=== PATIENT | male | born 1950 | race Caucasian/White ===

== ENCOUNTER 2023-08-17 11:26 | Outpatient (REF) | payer BC, SELFPAY ==
--- NOTE | ~2023-08-17 | XR_ITS ---
EXAMINATION: XR SHOULDER, RIGHT CLINICAL INFORMATION: Pain. COMPARISON: None available. TECHNIQUE: AP neutral and scapular Y views of the right shoulder are submitted. FINDINGS: Bony alignment and mineralization are normal. There is marked narrowing of the glenohumeral joint, with exuberant peripheral osteophyte formation. The acromioclavicular and coracoclavicular intervals are normal. There is a tiny distal acromial undersurface osteophyte, and there is cortical irregularity of the greater tuberosity of the proximal right humerus. No fracture or dislocation is seen. There is no soft tissue calcification or foreign body. No right pneumothorax is seen. There has been a prior cardiac valvuloplasty. XR/XR shoulder LT min 2V IMPRESSION: 1. There is marked osteoarthritic change of the right glenohumeral joint. 2. Findings suggest right rotator cuff injury. No myrna calcific tendinitis is seen. 3. There is no fracture or dislocation EXAMINATION: XR SHOULDER, LEFT CLINICAL INFORMATION: Pain. COMPARISON: None available. TECHNIQUE: AP neutral and scapular Y views of the left shoulder are submitted. FINDINGS: Bony alignment and mineralization are normal. There is marked narrowing of the glenohumeral joint, with peripheral osteophyte formation. The acromioclavicular and coracoclavicular intervals are normal. No fracture or dislocation is seen. No focal soft tissue calcification or foreign body is seen. There is no left pneumothorax. There has been a prior cardiac valvuloplasty. IMPRESSION: 1. There is marked osteoarthritic change of the left glenohumeral joint. 2. No fracture or dislocation is seen.
--- NOTE | ~2023-08-17 | XR_ITS ---
EXAMINATION: XR SHOULDER, RIGHT CLINICAL INFORMATION: Pain. COMPARISON: None available. TECHNIQUE: AP neutral and scapular Y views of the right shoulder are submitted. FINDINGS: Bony alignment and mineralization are normal. There is marked narrowing of the glenohumeral joint, with exuberant peripheral osteophyte formation. The acromioclavicular and coracoclavicular intervals are normal. There is a tiny distal acromial undersurface osteophyte, and there is cortical irregularity of the greater tuberosity of the proximal right humerus. No fracture or dislocation is seen. There is no soft tissue calcification or foreign body. No right pneumothorax is seen. There has been a prior cardiac valvuloplasty. XR/XR shoulder RT min 2V IMPRESSION: 1. There is marked osteoarthritic change of the right glenohumeral joint. 2. Findings suggest right rotator cuff injury. No myrna calcific tendinitis is seen. 3. There is no fracture or dislocation EXAMINATION: XR SHOULDER, LEFT CLINICAL INFORMATION: Pain. COMPARISON: None available. TECHNIQUE: AP neutral and scapular Y views of the left shoulder are submitted. FINDINGS: Bony alignment and mineralization are normal. There is marked narrowing of the glenohumeral joint, with peripheral osteophyte formation. The acromioclavicular and coracoclavicular intervals are normal. No fracture or dislocation is seen. No focal soft tissue calcification or foreign body is seen. There is no left pneumothorax. There has been a prior cardiac valvuloplasty. IMPRESSION: 1. There is marked osteoarthritic change of the left glenohumeral joint. 2. No fracture or dislocation is seen.
== END 2023-08-17 11:27 | disposition home or self-care (01) ==
LOC: HO.HOSX 11:26
PROVIDERS: Visit Provider Orthopaedic Surgery
DX: M25.512 Pain in left shoulder (principal); M25.511 Pain in right shoulder
CPT/HCPCS: 73030

== ENCOUNTER 2023-08-17 13:42 | Outpatient (AMB) | payer BC, SELFPAY ==
--- NOTE | 2023-08-17 13:43 | MHC.OFFVIS ---
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 The patient states that his symptoms gotten worse during COVID when he stopped going to the gym. He noticed that he lost range of motion in both of his shoulders at that time. Has been going to physical therapy which has helped with his discomfort and range of motion somewhat. He has taken Tylenol which gives him mild relief. Allergies codeine Adverse Reaction (Mild, Verified 08/17/23 14:08) Headache Medication List - Last Reconciled 08/18/23 by Gilberto Landry MD atorvastatin 10 mg PO DAILY hydrocortisone 2.5% appl topical lisinopril 10 mg PO DAILY metoprolol succinate ER 50 mg PO DAILY PFSH Surgical History (Updated 08/17/23 @ 14:09 by Adamaris Harley CMA) Hx of hernia repair History of open heart surgery Physical Exam Vital Signs: BMI result Body Mass Index 25.5 Const Other: Well-nourished well-developed very friendly male awake alert and oriented x3 in no acute distress Extrem Other: Bilateral upper extremity examination shows good capillary refill, no skin lesions noted, normal sensation light touch Bilateral shoulder examination shows forward flexion to 100 degrees, external rotation at 30 degrees, internal rotation to 30 degrees, 5/5 strength with supraspinatus testing, positive impingement signs, tenderness over his acromioclavicular joint, no instability Results Reviewed Results Reviewed: X-rays of the patient's bilateral shoulder show severe acromioclavicular joint narrowing, type 2 acromion, a moderate to severe glenohumeral joint degenerative changes, no acute bony abnormalities Assessment & Plan Assessment & Plan (1) Arthritis of both shoulder regions: Code(s): M19.011 - Primary osteoarthritis, right shoulder; M19.012 - Primary osteoarthritis, left shoulder Plan Mr. Gutierrez presents with bilateral shoulder pains, left greater than right, due to impingement syndrome, acromioclavicular joint arthritis, glenohumeral joint arthritis and adhesive capsulitis. I had a lengthy discussion with the patient regarding the treatment options. At this point the patient's symptoms are tolerable to him. Will continue with his home stretching program. The do's and don'ts of lifting were discussed at length with the patient. The patient will follow up with me on an as-needed basis should his symptoms worsen in any way. Feel free to call me at any time should questions regarding his orthopedic management arise. Thank you very much for asking me to see this very friendly gentleman. I spent 22 minutes in reviewing the patient's records and imaging studies, seeing the patient and documenting in the medical record. Orders: Orders XR shoulder LT min 2V 08/17/23 M25.512 - Pain in left shoulder XR shoulder RT min 2V 08/17/23 M25.511 - Pain in right shoulder PT Evaluation and Treatment 08/17/23 M19.011 - Primary osteoarthritis, right shoulder, M19.012 - Primary osteoarthritis, left shoulder Coding Level of Care Code New Pt Level 2 (48577) Diagnoses Arthritis of both shoulder regions M19.011; M19.012
[2023-08-17 14:03] VITALS: BMI 25.5
== END 2023-08-17 14:42 | disposition home or self-care (01) ==
PROVIDERS: PCP Hospitalist; Visit Provider Orthopaedic Surgery
DX: M19.011 Primary osteoarthritis, right shoulder (principal); M19.012 Primary osteoarthritis, left shoulder
CPT/HCPCS: 99202

== ENCOUNTER 2023-09-21 08:39 | Outpatient (AMB) | payer BC, SELFPAY ==
[2023-09-21 08:53] VITALS: BMI 25.5
--- NOTE | 2023-09-21 08:53 | MHC.OFFVIS ---
Vital Signs 09/21/23 08:53 Height 5 ft 3 in Weight 144 lb BMI 25.5 Intake Visit Reasons: Pre-Lt Shld 10/01/23 Intake Note: Mansoor Sifuentes is a 73 year old Right hand dominate male who presents with bilateral shoulder pains and stiffness, left greater than right. The patient states that his symptoms gotten worse during COVID when he stopped going to the gym. He noticed that he lost range of motion in both of his shoulders at that time. Has been going to physical therapy which has helped with his discomfort and range of motion somewhat. He has taken Tylenol which gives him mild relief. Allergies codeine Adverse Reaction (Mild, Verified 09/21/23 09:06) Headache Medication List - Last Reconciled 09/21/23 by Gilberto Landry MD atorvastatin 10 mg PO DAILY hydrocortisone 2.5% appl topical lisinopril 10 mg PO DAILY metoprolol succinate ER 50 mg PO DAILY PFSH Surgical History Hx of hernia repair History of open heart surgery Social History Patient Tobacco Use Status: Never used Tobacco Current occupational status: retired Current occupation: Right hand dominant Physical Exam Vital Signs: BMI result Body Mass Index 25.5 Const Other: Well-nourished well-developed very friendly male awake alert and oriented x3 in no acute distress Extrem Other: Bilateral upper extremity examination shows good capillary refill, no skin lesions noted, normal sensation light touch Left shoulder examination shows decreased range of motion when compared to his right shoulder, mild crepitus with range of motion, 5/5 strength with supraspinatus testing, positive impingement signs, tenderness over his acromioclavicular joint, no instability Results Reviewed Results Reviewed: MRI of the patient's left shoulder shows severe acromioclavicular joint narrowing, moderate glenohumeral joint degenerative changes, a type 2 acromion, no acute bony abnormalities Assessment & Plan Assessment & Plan (1) Left shoulder pain: Code(s): M25.512 - Pain in left shoulder Category: Medical Plan Mr. Gutierrez presents with left shoulder pain and stiffness due to impingement syndrome, acromioclavicular joint arthritis, glenohumeral joint arthritis and adhesive capsulitis. I had a lengthy discussion with the patient regarding the treatment options. At this point he has failed continued non operative treatments. The risks and benefits of left shoulder surgery were discussed at length with the patient. The patient wishes to proceed with surgery. Surgery will most likely involve left shoulder diagnostic arthroscopy with distal clavicle excision, acromioplasty, capsular release and manipulation under anesthesia. The patient was given a prescription for oxycodone at his preoperative appointment. He will follow-up as instructed. Feel free to call me at any time should questions regarding his orthopedic management arise. I spent 20 minutes in reviewing the patient's records and imaging studies, seeing the patient and documenting in the medical record. Medications: New oxycodone Partial Fill upon patient request. Take 1-2 tabs every 4 hours as needed for pain following your left shoulder surgery 10 mg (2 x 5 mg) PO Q4H PRN 40 tabs 0RF pain 1 week Coding Level of Care Code Est Pt Level 4 (65113) Diagnoses Left shoulder pain M25.512
== END 2023-09-21 09:33 | disposition home or self-care (01) ==
PROVIDERS: PCP Hospitalist; Visit Provider Orthopaedic Surgery
DX: M25.512 Pain in left shoulder (principal)
CPT/HCPCS: 99214

== ENCOUNTER → 2023-09-21 08:39 | Outpatient (BNVA) | payer BC, SELFPAY | PROVIDERS: PCP Hospitalist; Visit Provider Orthopaedic Surgery ==

== ENCOUNTER → 2023-09-23 15:00 | Outpatient (BNV) | payer BC, SELFPAY | PROVIDERS: PCP Hospitalist; Visit Provider Internal Medicine Cardiovascular Disease | DX: R94.31 Abnormal electrocardiogram [ECG] [EKG] (principal) | CPT/HCPCS: 93010 ==

== ENCOUNTER 2023-10-01 10:44 | Day surgery (SDC) | payer BC, SELFPAY ==
--- NOTE | 2023-09-23 | ECG_ITS ---
Test Reason : preop Blood Pressure : / mmHG Vent. Rate : 064 BPM Atrial Rate : 064 BPM P-R Int : 152 ms QRS Dur : 114 ms QT Int : 406 ms P-R-T Axes : 061 -36 -08 degrees QTc Int : 418 ms Normal sinus rhythm Left axis deviation Minimal voltage criteria for LVH, may be normal variant ( [place] product ) Abnormal ECG No previous ECGs available Referred By: Kassandra Danielson Electronically Signed By:Eric Yoder
[2023-09-23 13:57] VITALS: BP 141/82; PULSE 72; RESP 16; O2SAT 96; BMI 25.3
--- NOTE | 2023-09-23 14:29 | HO.ANESPROP2 ---
Documented by User: Kassandra Danielson NP 09/29/23 13:46 HPI - Anesthesia Eval Consult details Narrative: 73yo M for Shoulder Arthroscopy,distal clavicle excision,acromioplasty,with manipulation Follows [facility] s/p AVR 12/2021. Stable with yearly f/u 2022. Very active with walking, kayaking, etc (12/2021 pt presented with flash pulmo edema with type 2 NSTEMI, critical aortic stenosis. s/p AVR) Annual exam by PCP 07/2023, stable PMFSH Active Problems Active Problems: All Active Problems Arthritis of both shoulder regions (Acute) Right shoulder pain (Acute) Left shoulder pain (Acute) Past Medical History Medical History Wears hearing aid in both ears [place] [employer] [employer] (hard of hearing) Arthritis Hx of shortness of breath Seasonal allergies Cardiac murmur Elevated cholesterol Personal history of COVID-19 Aortic stenosis Bilateral carotid bruits Impaired fasting glucose History of prostate cancer HTN (hypertension) Family History Family history of problems with anesthesia: No Surgical History Surgical History History of open heart surgery (12/2021) Hx of basal cell carcinoma excision Hx of wisdom tooth extraction Hx of prostate biopsy Hx of bilateral inguinal hernia repair Hx of melanoma excision Hx of prostatectomy Hx of hernia repair History of Problems with Anesthesia: No Social History Social History Household Members: Spouse Housing: House Are you a primary manager urgent care to a significant other at home: No Do you presently have visiting nurse or other home services: No Patient Tobacco Use Status: Never used Tobacco Use of substances other than those prescribed or required for medical reasons: No Have you been hit, kicked, punched, or otherwise hurt by someone within the past year? If so, by whom?: No Are you DNR?: No Advance Directives: No Advance Directives Information Provided: Yes Advance Directives on File: No Recently lost weight without trying: No Nutrition Risks: No Nutritional Risk Poor oral hygiene: No Current occupational status: retired Current occupation: Right hand dominant Meds Allergies Allergy/AdvReac Type Severity Reaction Status Date / Time codeine AdvReac Mild Headache Verified 10/01/23 10:55 Home Medications ?Medication ?Instructions ?Recorded ?Confirmed ?Last Taken ?Type atorvastatin 10 mg tablet 10 mg PO DAILY@1700 08/17/23 09/22/23 Unknown History hydrocortisone 2.5 % topical cream 1 appl topical DAILY PRN Rash 08/17/23 09/23/23 Unknown History lisinopril 10 mg tablet 10 mg PO DAILY 08/17/23 10/01/23 09/30/23 History metoprolol succinate 50 mg 50 mg PO DAILY 08/17/23 10/01/23 10/01/23 History tablet,extended release 24 hr acai arambula extract 500 mg capsule 1,200 mg PO DAILY 09/22/23 09/22/23 Unknown History ascorbic acid (vitamin C) 500 mg 500 mg PO DAILY 09/22/23 09/23/23 Unknown History tablet (Vitamin C) aspirin 81 mg tablet,delayed 81 mg PO DAILY 09/22/23 10/01/23 09/30/23 History release cholecalciferol (vitamin D3) 25 25 mcg PO DAILY 09/22/23 09/22/23 Unknown History mcg (1,000 unit) tablet (Vitamin D3) coQ10 (ubiquinol) 200 mg capsule 300 mg PO DAILY 09/22/23 09/23/23 Unknown History flaxseed oil 1,000 mg capsule 1,400 mg PO DAILY 09/22/23 10/01/23 09/24/23 History fluticasone propionate 50 1 spray intranasal DAILY 09/22/23 09/22/23 Unknown History mcg/actuation nasal spray,suspension (Flonase Allergy Relief) magnesium 200 mg tablet 250 mg PO DAILY 09/22/23 09/23/23 Unknown History multivitamin 1 tab PO DAILY 09/22/23 09/22/23 Unknown History polyethylene glycol 3350 17 gram 17 g PO DAILY 09/22/23 09/22/23 Unknown History oral powder packet (Miralax) oxycodone 5 mg tablet 5 mg PO Q4H PRN pain 09/23/23 09/23/23 Unknown History Exam Height,Weight and Vital Signs: Height 5 ft 3.5 in Weight 65.771 kg Last Vital Signs Pulse 72 09/23/23 13:57 Resp 16 09/23/23 13:57 BP 141/82 H 09/23/23 13:57 Pulse Ox 96 05/09/24 13:57 O2 Del Method Room Air 09/23/23 13:57 Pertinent Lab Results Pertinent Lab Results: BMP, A1C 07/2023 from outside facility WNL Lab Results 09/23/23 Range/Units 15:08 WBC 9.2 (4.8-10.8) X10*3/uL RBC 4.82 (4.60-5.80) X10*6/uL Hgb 14.6 (14.0-18.0) g/dl Hct 43.4 (42.0-52.0) % MCV 90.0 (80.0-98.0) fL MCH 30.3 (27.0-33.0) pg MCHC 33.6 (31.0-36.0) g/dl RDW 12.4 (11.0-16.0) % Plt Count 204 (160-400) X10*3/uL MPV 10.7 (9.4-12.4) fL Absolute Nucleated RBC 0.000 (0.0-0.012) X10*3/uL Nucleated RBC % (auto) 0.0 (0.0-0.2) /100WBC Narrative Narrative: EKG 09/2023 Vent. Rate : 064 BPM Atrial Rate : 064 BPM P-R Int : 152 ms QRS Dur : 114 ms QT Int : 406 ms P-R-T Axes : 061 -36 -08 degrees QTc Int : 418 ms Normal sinus rhythm Left axis deviation Minimal voltage criteria for LVH, may be normal variant ( [place] product ) Abnormal ECG No previous ECGs available ( No Change from previous at outside facility) ECHO 12/2022 LVEF 60-65% Gr 1 DD Bioprosthesis in aortic position with nml function and trace regurg Asc thoracic aorta @ 4.0cm Airway Mallampati Class: III TM Dist: >3cm Neck ROM: Full Loose/Missing/Broken Teeth: Yes (Crowned molars) Heart: RRR +m Lungs: CTAB Assessment and Plan Assessment Anesthesia Assessment: Anesthesia Plan Discussed and PAT Visit Final Anesthetic Review Family History of Problems with Anesthesia: No History of Problems with Anesthesia: No Documented by User: Elen Salas MD 10/01/23 13:22 [facility] Past Medical History Medical History Wears hearing aid in both ears [place] [employer] [employer] (hard of hearing) Arthritis Hx of shortness of breath Seasonal allergies Cardiac murmur Elevated cholesterol Personal history of COVID-19 Aortic stenosis Bilateral carotid bruits Impaired fasting glucose History of prostate cancer HTN (hypertension) Surgical History Surgical History History of open heart surgery (12/2021) Hx of basal cell carcinoma excision Hx of wisdom tooth extraction Hx of prostate biopsy Hx of bilateral inguinal hernia repair Hx of melanoma excision Hx of prostatectomy Hx of hernia repair Social History Social History Household Members: Spouse Housing: House Are you a primary manager urgent care to a significant other at home: No Do you presently have visiting nurse or other home services: No Patient Tobacco Use Status: Never used Tobacco Use of substances other than those prescribed or required for medical reasons: No Have you been hit, kicked, punched, or otherwise hurt by someone within the past year? If so, by whom?: No Are you DNR?: No Advance Directives: No Advance Directives Information Provided: Yes Advance Directives on File: No Recently lost weight without trying: No Nutrition Risks: No Nutritional Risk Poor oral hygiene: No Current occupational status: retired Current occupation: Right hand dominant Meds Allergies Allergy/AdvReac Type Severity Reaction Status Date / Time codeine AdvReac Mild Headache Verified 10/01/23 10:55 Home Medications ?Medication ?Instructions ?Recorded ?Confirmed ?Last Taken ?Type atorvastatin 10 mg tablet 10 mg PO DAILY@1700 08/17/23 09/22/23 Unknown History hydrocortisone 2.5 % topical cream 1 appl topical DAILY PRN Rash 08/17/23 09/23/23 Unknown History lisinopril 10 mg tablet 10 mg PO DAILY 08/17/23 10/01/23 09/30/23 History metoprolol succinate 50 mg 50 mg PO DAILY 08/17/23 10/01/23 10/01/23 History tablet,extended release 24 hr acai arambula extract 500 mg capsule 1,200 mg PO DAILY 09/22/23 09/22/23 Unknown History ascorbic acid (vitamin C) 500 mg 500 mg PO DAILY 09/22/23 09/23/23 Unknown History tablet (Vitamin C) aspirin 81 mg tablet,delayed 81 mg PO DAILY 09/22/23 10/01/23 09/30/23 History release cholecalciferol (vitamin D3) 25 25 mcg PO DAILY 09/22/23 09/22/23 Unknown History mcg (1,000 unit) tablet (Vitamin D3) coQ10 (ubiquinol) 200 mg capsule 300 mg PO DAILY 09/22/23 09/23/23 Unknown History flaxseed oil 1,000 mg capsule 1,400 mg PO DAILY 09/22/23 10/01/23 09/24/23 History fluticasone propionate 50 1 spray intranasal DAILY 09/22/23 09/22/23 Unknown History mcg/actuation nasal spray,suspension (Flonase Allergy Relief) magnesium 200 mg tablet 250 mg PO DAILY 09/22/23 09/23/23 Unknown History multivitamin 1 tab PO DAILY 09/22/23 09/22/23 Unknown History polyethylene glycol 3350 17 gram 17 g PO DAILY 09/22/23 09/22/23 Unknown History oral powder packet (Miralax) oxycodone 5 mg tablet 5 mg PO Q4H PRN pain 09/23/23 09/23/23 Unknown History Exam Airway Mallampati Class: III (anterior larynx noted on laryngoscopy intraop ) Assessment and Plan Assessment Anesthesia Assessment: Chart Reviewed Final Anesthetic Review ASA Class: III Final Preanesthetic Review: No Changes in Pt Med Stat, Meds/Allgs Chart Reviewed, Consent Obtained/Reviewed and Anes Risks/Benef Reviewed Patient Risk: Intermediate Procedure Risk: Intermediate Anesthetic Plan Anesthetic Plan: GA and Regional Block Disposition: Standard PACU
[2023-09-23 15:31] LABS: Hematocrit 43.4 % (42.0-52.0); Hemoglobin 14.6 g/dl (14.0-18.0); Mean Corpuscular HGB Conc 33.6 g/dl (31.0-36.0); Mean Corpuscular Hemoglobin 30.3 pg (27.0-33.0); Mean Platelet Volume 10.7 fL (9.4-12.4); Platelet Count 204 X10*3/uL (160-400); Red Blood Count 4.82 X10*6/uL (4.60-5.80); Red Cell Distribution Width 12.4 % (11.0-16.0); White Blood Count 9.2 X10*3/uL (4.8-10.8)
[2023-10-01] VITALS (8 sets, daily range): BP systolic 175–190; BP diastolic 83–97; PULSE 61–75; RESP 12–16; TEMP 36.1–36.7; O2SAT 97–100; BMI 25.3
[2023-10-01] MEDS: Lactated Ringers 1,000 ML 100 ML IVCONT (11:21)
--- NOTE | 2023-10-01 14:29 | P.BOP_ITS ---
Brief Operative Note Date of Service: 10/01/23 Pre-op diagnosis: Left shoulder impingement syndrome, left shoulder arthritis, left shoulder adhesive capsulitis Post-op diagnosis: same Procedure: Left shoulder arthroscopic distal clavicle excision, left shoulder arthroscopic acromioplasty, left shoulder arthroscopic glenohumeral joint debridement, left shoulder arthroscopic anterior capsular release, left shoulder manipulation under anesthesia Implants: None Surgeon: Gilberto Landry MD Anesthesia: GETA and regional Was an Apartment Leasing Manager used for this Procedure?: No Estimated blood loss (mL): 10 Pathology: none sent Condition: stable Disposition: PACU
--- NOTE | 2023-10-01 14:30 | W.PM.OPN ---
Operative Note Operative Note Date of Service: 10/01/23 Narrative: After the patient was identified as Mansoor Gutierrez and his left shoulder was initialed by myself the patient was brought to the holding area where a left shoulder interscalene regional block was performed by the anesthesiologist in routine fashion. The patient was then brought to the operating room where general anesthesia was induced by the anesthesiologist in routine fashion. The patient was given 2 g of IV Ancef preoperatively for infection prophylaxis. Examination under anesthesia of the patient's left shoulder showed decreased range of motion when compared to the right shoulder. The patient's left shoulder had forward flexion to 90 degrees compared to 160 degrees, external rotation to 20 degrees compared to 40 degrees, and internal rotation to 30 degrees compared to 40 degrees. The patient was gently positioned in the beach chair position with all bony prominences well padded. The patient's left shoulder region and upper extremity were prepped and draped in sterile fashion. A formal time-out was completed. A #11 scalpel blade was used to make a posterior portal 2 cm inferior and 1 cm medial to the posterolateral corner of the acromion. Blunt trocar technique was used to enter the glenohumeral joint in routine fashion. An anterior portal was made just lateral to the coracoid process after proper positioning was confirmed using a spinal needle. Diagnostic arthroscopy showed diffuse grades 3 and 4 degenerative changes of the humeral head articular surface as well as diffuse grades 2 and 3 degenerative changes of the glenoid articular surface. The articular surfaces were made smooth using the arthroscopic shaver. There was no evidence of rotator cuff tearing. There was no evidence of injury to the biceps tendon or its insertion onto the glenoid. There was inflammation of the anterior joint capsule consistent with adhesive capsulitis. The ArthroCare Wand was then used to perform an anterior capsular release between the inferior border of the biceps tendon and the superior border of the subscapularis tendon. The arthroscope was then placed from the posterior portal into the subacromial space. A lateral portal was made 2 fingerbreadths lateral to the anterior lateral corner of the acromion. The ArthroCare Wand was used to ablate soft tissues along the undersurface of the acromion as well as to excise the coracoacromial ligament. There was a sharp spur along the undersurface of the acromion which was removed using the hooded bur. The arthroscope was then placed into the lateral portal and the acromioplasty was completed with the bur in the posterior portal using the posterior aspect of the acromion as a cutting block. The ArthroCare Wand was then brought in through the anterior portal and was used to ablate soft tissues along the acromioclavicular joint and distal clavicle. The posterior and superior ligamentous structures were left intact. A distal clavicle excision of 8 mm was performed using the hooded bur. Any remaining bursal tissue was removed using the arthroscopic shaver. The subacromial space was irrigated and then drained. All arthroscopic instruments were removed. A gentle manipulation under anesthesia was then performed. Full passive range of motion was easily attained. The 3 portals were closed with 3-0 nylon interrupted suture. The subacromial space was injected with Marcaine. Dry sterile dressing was placed over all incisions. The patient's left upper extremity was placed into a sling. The patient was awoken and extubated in the operating room. The patient was transferred to the recovery room in stable condition.
[2023-10-01] MEDS: cefTRIAXone sodium 1 GM in 0.9 % Sodium Chloride 50 ML IV (14:40)
== END 2023-10-01 15:56 ==
PROVIDERS: Nurse Practitioner; PCP Hospitalist; Visit Provider Orthopaedic Surgery
PROC: (CPT 29805; principal; 2023-10-01 13:20)
DX: M75.42 Impingement syndrome of left shoulder (principal); M75.02 Adhesive capsulitis of left shoulder; M19.012 Primary osteoarthritis, left shoulder; Z79.899 Other long term (current) drug therapy; Z88.5 Allergy status to narcotic agent; Z98.890 Other specified postprocedural states
CPT/HCPCS: 29824; 29825; 29822; 29826; 36415; 85027; 93005; J0131; J0171; J0665; J0690; J0696; J1100; J2250; J2405; J2704; J2795; J3010

== ENCOUNTER → 2023-10-01 10:44 | Outpatient (BNV) | payer BC, SELFPAY | PROVIDERS: PCP Hospitalist; Visit Provider Orthopaedic Surgery | DX: M75.02 Adhesive capsulitis of left shoulder (principal); M19.012 Primary osteoarthritis, left shoulder; M75.42 Impingement syndrome of left shoulder | CPT/HCPCS: 29824; 29826 ==

== ENCOUNTER 2023-10-14 13:15 | Outpatient (AMB) | payer BC, SELFPAY ==
--- NOTE | 2023-10-14 13:35 | MHC.OFFVIS ---
Vital Signs 10/14/23 13:39 Height 5 ft 3 in Weight 140 lb BMI 24.8 Intake Visit Reasons: PO-Lt Shld 10/01/23 Intake Note: Mansoor is a 73 year old male who presents for his post operative appointment s/p Left shoulder on 10/01/2023. The patient reports mild intermittent discomfort in his left shoulder. He denies any fevers or chills. He has been doing stretching exercises on his own. He has no longer taking narcotics for his discomfort. Allergies codeine Adverse Reaction (Mild, Verified 10/14/23 13:41) Headache Medication List - Last Reconciled 10/14/23 by Gilberto Landry MD acai arambula extract 1,200 mg PO DAILY ascorbic acid (vitamin C) (Vitamin C) 500 mg PO DAILY aspirin 81 mg PO DAILY atorvastatin 10 mg PO DAILY@1700 cholecalciferol (vitamin D3) (Vitamin D3) 25 mcg PO DAILY coQ10 (ubiquinol) 300 mg PO DAILY flaxseed oil 1,400 mg PO DAILY fluticasone propionate 50 mcg/actuation (Flonase Allergy Relief) 1 spray intranasal DAILY hydrocortisone 2.5% 1 appl topical DAILY PRN lisinopril 10 mg PO DAILY magnesium 250 mg PO DAILY metoprolol succinate ER 50 mg PO DAILY multivitamin 1 tab PO DAILY oxycodone 5 mg PO Q4H PRN polyethylene glycol 3350 (Miralax) 17 grams PO DAILY PFSH Medical History Wears hearing aid in both ears [place] (hard of hearing) Arthritis Hx of shortness of breath Seasonal allergies Cardiac murmur Elevated cholesterol Personal history of COVID-19 Aortic stenosis Bilateral carotid bruits Impaired fasting glucose History of prostate cancer HTN (hypertension) Surgical History History of open heart surgery (12/2021) Hx of basal cell carcinoma excision Hx of wisdom tooth extraction Hx of prostate biopsy Hx of bilateral inguinal hernia repair Hx of melanoma excision Hx of prostatectomy Hx of hernia repair Social History Household Members: Spouse Housing: House Are you a primary critical care cns to a significant other at home: No Do you presently have visiting nurse or other home services: No 75 years or older and lives alone: No Patient Tobacco Use Status: Never used Tobacco Current occupational status: retired Current occupation: Right hand dominant Physical Exam Vital Signs: BMI result Body Mass Index 24.8 Const Other: Well-nourished well-developed very friendly male awake alert and oriented x3 in no acute distress Extrem Other: Bilateral upper extremity examination shows good capillary refill, no skin lesions noted, normal sensation light touch Left shoulder examination shows that the surgical incisions are healing well, no erythema, improved range of motion when compared to preop, minimal discomfort with range of motion Assessment & Plan Assessment & Plan (1) Left shoulder pain: Code(s): M25.512 - Pain in left shoulder Category: Medical Plan Mr. Gutierrez is doing very well after undergoing left shoulder arthroscopic surgery on 10/01/2023. His sutures were removed and Steri-Strips placed over his incisions. He will continue with his home stretching program. The do's and don'ts of lifting were discussed at length with the patient. He will contact me prior to his follow-up appointment in 6 weeks should any questions or concerns arise. Feel free to call me at any time should questions regarding his orthopedic management arise. Coding Level of Care Code Global (82364) Diagnoses Left shoulder pain M25.512
[2023-10-14 13:39] VITALS: BMI 24.8
== END 2023-10-14 13:56 | disposition home or self-care (01) ==
PROVIDERS: PCP Hospitalist; Visit Provider Orthopaedic Surgery
DX: M25.512 Pain in left shoulder (principal)
CPT/HCPCS: 99024

== ENCOUNTER → 2023-10-14 13:15 | Outpatient (BNVA) | payer BC, SELFPAY | PROVIDERS: PCP Hospitalist; Visit Provider Orthopaedic Surgery ==

== ENCOUNTER 2023-11-24 11:27 | Outpatient (AMB) | payer BC, SELFPAY ==
--- NOTE | 2023-11-24 11:30 | MHC.OFFVIS ---
Intake Visit Reasons: PO-Lt Shld 10/01/23-6 week follow up Intake Note: Mansoor is a 73 year old male who presents to the office today for a 6 week P/O left shoulder 10/01/23 follow up. Pt states he is feeling well. The patient continues with his home stretching program. He does use a vivek at home. He denies any fevers or chills. Allergies codeine Adverse Reaction (Mild, Verified 11/24/23 11:30) Headache Medication List - Last Reconciled 11/24/23 by Gilberto Landry MD acai arambula extract 1,200 mg PO DAILY ascorbic acid (vitamin C) (Vitamin C) 500 mg PO DAILY aspirin 81 mg PO DAILY atorvastatin 10 mg PO DAILY@1700 cholecalciferol (vitamin D3) (Vitamin D3) 25 mcg PO DAILY coQ10 (ubiquinol) 300 mg PO DAILY flaxseed oil 1,400 mg PO DAILY fluticasone propionate 50 mcg/actuation (Flonase Allergy Relief) 1 spray intranasal DAILY hydrocortisone 2.5% 1 appl topical DAILY PRN lisinopril 10 mg PO DAILY magnesium 250 mg PO DAILY metoprolol succinate ER 50 mg PO DAILY multivitamin 1 tab PO DAILY polyethylene glycol 3350 (Miralax) 17 grams PO DAILY PFSH Medical History Wears hearing aid in both ears [place] (hard of hearing) Arthritis Hx of shortness of breath Seasonal allergies Cardiac murmur Elevated cholesterol Personal history of COVID-19 Aortic stenosis Bilateral carotid bruits Impaired fasting glucose History of prostate cancer HTN (hypertension) Surgical History History of open heart surgery (12/2021) Hx of basal cell carcinoma excision Hx of wisdom tooth extraction Hx of prostate biopsy Hx of bilateral inguinal hernia repair Hx of melanoma excision Hx of prostatectomy Hx of hernia repair Social History Household Members: Spouse Housing: House Are you a primary ocular care technician to a significant other at home: No Do you presently have visiting nurse or other home services: No 75 years or older and lives alone: No Patient Tobacco Use Status: Never used Tobacco Current occupational status: retired Current occupation: Right hand dominant Physical Exam Extrem Other: Left upper extremity examination shows that the surgical incisions are well healed, no erythema, improved range of motion when compared to his preoperative exam, minimal discomfort with range of motion, 5/5 strength with supraspinatus testing Assessment & Plan Assessment & Plan (1) Left shoulder pain: Code(s): M25.512 - Pain in left shoulder Category: Medical Plan Mr. Gutierrez continues to do well after undergoing left shoulder arthroscopic surgery on 10/01/2023. I did give him a prescription to go to formal physical therapy. He will also continue with his home stretching program. The do's and don'ts of lifting were discussed at length with the patient he will contact me prior to his follow-up appointment in 2 months should any questions or concerns arise. Feel free to call me at any time should questions regarding his orthopedic management arise. Orders: Orders PT Evaluation and Treatment Today M25.512 - Pain in left shoulder Coding Level of Care Code Global (44523) Diagnoses Left shoulder pain M25.512
== END 2023-11-24 11:54 | disposition home or self-care (01) ==
PROVIDERS: PCP Hospitalist; Visit Provider Orthopaedic Surgery
DX: M25.512 Pain in left shoulder (principal)
CPT/HCPCS: 99024

== ENCOUNTER → 2023-11-24 11:27 | Outpatient (BNVA) | payer BC, SELFPAY | PROVIDERS: PCP Hospitalist; Visit Provider Orthopaedic Surgery ==

== ENCOUNTER 2024-03-01 10:27 | Outpatient (AMB) | payer BC, SELFPAY ==
[2024-03-01 10:29] VITALS: BMI 24.8
--- NOTE | 2024-03-01 10:29 | MHC.OFFVIS ---
Vital Signs 03/01/24 10:29 Height 5 ft 3 in Weight 140 lb BMI 24.8 Intake Visit Reasons: OV-Lt Shld 10/01/23 Intake Note: Mansoor is a 73 year old male who presents with complaints of mild to moderate discomfort in his left shoulder after undergoing left shoulder arthroscopic surgery on 10/01/2023. He continues to go to formal physical therapy. He denies any fevers or chills. Allergies codeine Adverse Reaction (Mild, Verified 03/01/24 10:34) Headache Medication List - Last Reconciled 03/01/24 by Gilberto Landry MD acai arambula extract 1,200 mg PO DAILY ascorbic acid (vitamin C) (Vitamin C) 500 mg PO DAILY aspirin 81 mg PO DAILY atorvastatin 10 mg PO DAILY@1700 cholecalciferol (vitamin D3) (Vitamin D3) 25 mcg PO DAILY coQ10 (ubiquinol) 300 mg PO DAILY flaxseed oil 1,400 mg PO DAILY fluticasone propionate 50 mcg/actuation (Flonase Allergy Relief) 1 spray intranasal DAILY hydrocortisone 2.5% 1 appl topical DAILY PRN lisinopril 10 mg PO DAILY magnesium 250 mg PO DAILY metoprolol succinate ER 50 mg PO DAILY multivitamin 1 tab PO DAILY polyethylene glycol 3350 (Miralax) 17 grams PO DAILY PFSH Medical History Wears hearing aid in both ears [place] (hard of hearing) Arthritis Hx of shortness of breath Seasonal allergies Cardiac murmur Elevated cholesterol Personal history of COVID-19 Aortic stenosis Bilateral carotid bruits Impaired fasting glucose History of prostate cancer HTN (hypertension) Surgical History History of open heart surgery (12/2021) Hx of basal cell carcinoma excision Hx of wisdom tooth extraction Hx of prostate biopsy Hx of bilateral inguinal hernia repair Hx of melanoma excision Hx of prostatectomy Hx of hernia repair Social History Household Members: Spouse Housing: House Are you a primary healthcare management consultant to a significant other at home: No Do you presently have visiting nurse or other home services: No 75 years or older and lives alone: No Patient Tobacco Use Status: Never used Tobacco Current occupational status: retired Current occupation: Right hand dominant Physical Exam Vital Signs: BMI result Body Mass Index 24.8 Const Other: Well-nourished well-developed very friendly male awake alert and oriented x3 in no acute distress Extrem Other: Bilateral upper extremity examination shows good capillary refill, no skin lesions noted, normal sensation light touch Left shoulder examination shows slightly decreased range of motion when compared to his right shoulder, 4+ out of 5 strength with supraspinatus testing, mild crepitus with range of motion, no instability Assessment & Plan Assessment & Plan (1) Arthritis of left shoulder region: Code(s): M19.012 - Primary osteoarthritis, left shoulder Category: Medical Plan Mr. Gutierrez continues to do fairly well after undergoing left shoulder arthroscopic surgery on 10/01/2023. Will continue going to formal physical therapy for now. He will gradually transition to a home exercise program. He does have residual discomfort due to glenohumeral joint arthritis. He wishes to hold off on total shoulder replacement surgery for as long as possible. He will contact me prior to his follow-up appointment in 3 months should any questions or concerns arise. Feel free to call me at any time should questions regarding his orthopedic management arise. I spent 21 minutes in reviewing the patient's records and imaging studies, seeing the patient and documenting in the medical record. Coding Level of Care Code Est Pt Level 3 (08510) Complex EM visit Add On G2211 Diagnoses Arthritis of left shoulder region M19.012
== END 2024-03-01 10:57 | disposition home or self-care (01) ==
PROVIDERS: PCP Hospitalist; Visit Provider Orthopaedic Surgery
DX: M19.012 Primary osteoarthritis, left shoulder (principal)
CPT/HCPCS: 99213

== ENCOUNTER → 2024-03-01 10:27 | Outpatient (BNVA) | payer BC, SELFPAY | PROVIDERS: PCP Hospitalist; Visit Provider Orthopaedic Surgery ==

== ENCOUNTER 2024-06-08 10:22 | Outpatient (AMB) | payer BC, SELFPAY ==
--- NOTE | 2024-06-08 10:36 | MHC.OFFVIS ---
Intake Visit Reasons: OV-Lt Shld 10/01/23 Intake Note: Mansoor is a 74 year old male who presents with complaints of progressively worsening left shoulder pain and stiffness. The patient did undergo left shoulder arthroscopic surgery on 10/01/2023. He states that initially he got fairly good relief from that surgery. He did go to formal physical therapy. The patient states that over the last few months he has lost range of motion and his pain increased. The patient states that he feels a ?grinding sensation? in his left shoulder when he moves it. He denies any fevers or chills. Allergies codeine Adverse Reaction (Mild, Verified 03/01/24 10:34) Headache Medication List - Last Reviewed 06/08/24 by STEVIE Gutiérrez acapetros arambula extract 1,200 mg PO DAILY ascorbic acid (vitamin C) (Vitamin C) 500 mg PO DAILY aspirin 81 mg PO DAILY atorvastatin 10 mg PO DAILY@1700 cholecalciferol (vitamin D3) (Vitamin D3) 25 mcg PO DAILY coQ10 (ubiquinol) 300 mg PO DAILY flaxseed oil 1,400 mg PO DAILY fluticasone propionate 50 mcg/actuation (Flonase Allergy Relief) 1 spray intranasal DAILY hydrocortisone 2.5% 1 appl topical DAILY PRN lisinopril 10 mg PO DAILY magnesium 250 mg PO DAILY metoprolol succinate ER 50 mg PO DAILY multivitamin 1 tab PO DAILY polyethylene glycol 3350 (Miralax) 17 grams PO DAILY PFSH Medical History Wears hearing aid in both ears [place] (hard of hearing) Arthritis Hx of shortness of breath Seasonal allergies Cardiac murmur Elevated cholesterol Personal history of COVID-19 Aortic stenosis Bilateral carotid bruits Impaired fasting glucose History of prostate cancer HTN (hypertension) Surgical History History of open heart surgery (12/2021) Hx of basal cell carcinoma excision Hx of wisdom tooth extraction Hx of prostate biopsy Hx of bilateral inguinal hernia repair Hx of melanoma excision Hx of prostatectomy Hx of hernia repair Social History Household Members: Spouse Housing: House Are you a primary career development coordinator to a significant other at home: No Do you presently have visiting nurse or other home services: No 75 years or older and lives alone: No Patient Tobacco Use Status: Never used Tobacco Current occupational status: retired Current occupation: Right hand dominant Physical Exam Extrem Other: Left shoulder examination shows decreased active and passive range of motion when compared to his right shoulder, palpable crepitus with range of motion, pain with range of motion, no instability Results Reviewed Results Reviewed: Arthroscopic photographs from his left shoulder surgery in September of 2023 show grade 3 and 4 degenerative changes of the humeral head and grade 2 and 3 degenerative changes of the glenoid articular surface Assessment & Plan Assessment & Plan (1) Arthritis of left shoulder region: Code(s): M19.012 - Primary osteoarthritis, left shoulder Category: Medical Plan Mr. Gutierrez presents with continued left shoulder pain and stiffness due to end-stage glenohumeral joint arthritis. I had a lengthy discussion with the patient regarding the treatment options. At this point he appears to be failing continued non operative treatments as well as arthroscopic surgery. The risks and benefits of left total shoulder replacement surgery were discussed at length with the patient. The patient is considering undergoing surgery. He would like to meet with Dr. Mcallister who performs this type of surgery. I will arrange for him to have a consultation with Dr. Mcallister. He will continue with his range of motion exercises in the meantime. Feel free to call me at any time should questions regarding his orthopedic management arise. I spent 20 minutes in reviewing the patient's records and imaging studies, seeing the patient and documenting in the medical record. Coding Level of Care Code Est Pt Level 3 (09952) Complex EM visit Add On G2211 Diagnoses Arthritis of left shoulder region M19.012
== END 2024-06-08 10:51 | disposition home or self-care (01) ==
PROVIDERS: PCP Hospitalist; Visit Provider Orthopaedic Surgery
DX: M19.012 Primary osteoarthritis, left shoulder (principal)
CPT/HCPCS: 99213